=== PATIENT | female | born 1940 | race Caucasian/White ===

== ENCOUNTER → 2019-02-08 09:46 | Outpatient (CLI) | payer MEDICARE, OTHER, SELFPAY ==
--- NOTE | 2019-02-08 | DI.MRI.S_ITS ---
PROCEDURE: MR LUMBAR SPINE WO CON INDICATIONS: SCIATICA,RIGHT SIDE,RADICULAR PAIN RIGHT SIDE TECHNIQUE: Noncontrast sagittal T1 spin echo and T2 fast echo, sagittal STIR, axial T1 and T2 fast spin echo through the lumbar spine. In cases with scoliosis, additional coronal T2 fast spin echo may be performed. COMPARISON: None. FINDINGS: Image quality: Excellent. Alignment and Curvature: There is grade 1 anterolisthesis of L3 on L4 and L4-L5 Bone Marrow: Marrow is of normal overall signal. No acute vertebral body compression fractures. Spinal Cord: Conus medullaris terminates at the T12-L1 level. Visualized cord demonstrates normal signal and size. Paraspinous Soft Tissues: No paravertebral masses. L1-L2: Normal appearance. L2-L3: Bilateral facet arthrosis is seen. No significant disc bulge, canal stenosis or neuroforaminal narrowing. L3-L4: Broad-based disc bulge and bilateral facet arthrosis is seen with mild central canal stenosis and mild to moderate bilateral neuroforaminal narrowing. L4-L5: Decreased intervertebral disc space and degenerative endplate changes are seen. Broad-based disc bulge and bilateral facet arthrosis is seen with mild central canal stenosis and mild bilateral neural foramina narrowing. L5-S1: Diffuse disc bulge and bilateral facet arthrosis is seen with mild central canal stenosis and mild bilateral neuroforaminal narrowing. IMPRESSION: 1. Mild degenerative disc bulge and bilateral facet arthrosis at L3-4 through L5-S1 levels causing mild central canal stenosis and bilateral neural foramina narrowing. 2. Grade one anterolisthesis of L3 on L4 and L4 on L5. 3. No compression fracture or spondylolisthesis. No marrow edema. Dictated by: Sonny Trejo M.D. on 02/08/2019 at 11:52 Approved by: Sonny Trejo M.D. on 02/08/2019 at 11:54
== END ==
PROVIDERS: PCP Family Medicine Geriatric Medicine; Visit Provider Family Medicine Geriatric Medicine
DX: M51.16 Intervertebral disc disorders with radiculopathy, lumbar region (principal); M51.17 Intervertebral disc disorders with radiculopathy, lumbosacral region; M48.061 Spinal stenosis, lumbar region without neurogenic claudication; M48.07 Spinal stenosis, lumbosacral region; M47.26 Other spondylosis with radiculopathy, lumbar region; M47.27 Other spondylosis with radiculopathy, lumbosacral region; M43.16 Spondylolisthesis, lumbar region
CPT/HCPCS: 72148

== ENCOUNTER → 2019-02-27 12:27 | Outpatient (CLI) | payer MEDICARE, OTHER, SELFPAY ==
--- NOTE | 2019-02-27 12:31 | DI.RAD.S_ITS ---
PROCEDURE: XR HIP W PEL IF DONE RT 2V INDICATIONS: right low back and SI joint pain TECHNIQUE: 2 views of the hip were acquired. COMPARISON: None. FINDINGS: Bones: No fractures or dislocations. No suspicious bony lesions. The visualized pelvic ring appears intact. Moderate bilateral hip joint degenerative changes as evidenced by joint space narrowing and osteophyte formation. Moderate degenerative changes of the lower lumbosacral spine. Soft tissues: No suspicious soft tissue calcifications or masses. IMPRESSION: Moderate degenerative changes of the bilateral hip joints. Dictated by: Raza Ramires M.D. on 02/27/2019 at 14:12 Approved by: Raza Ramires M.D. on 02/27/2019 at 14:14
== END ==
PROVIDERS: PCP Family Medicine Geriatric Medicine; Visit Provider Registered Nurse
DX: M54.5 Low back pain (principal); M53.3 Sacrococcygeal disorders, not elsewhere classified; M47.817 Spondylosis without myelopathy or radiculopathy, lumbosacral region; M43.10 Spondylolisthesis, site unspecified; M47.816 Spondylosis without myelopathy or radiculopathy, lumbar region; M99.89 Other biomechanical lesions of abdomen and other regions; G89.29 Other chronic pain; K58.9 Irritable bowel syndrome, unspecified; K21.9 Gastro-esophageal reflux disease without esophagitis; Z86.73 Personal history of transient ischemic attack (TIA), and cerebral infarction without residual deficits
CPT/HCPCS: 73502; 99214

== ENCOUNTER 2019-03-30 09:37 | Outpatient (CLI) | payer MEDICARE, OTHER, SELFPAY ==
[2019-03-30] VITALS (8 sets, daily range): BP systolic 122–172; BP diastolic 53–84; PULSE 18–97; RESP 16–18; TEMP 36.2; O2SAT 96–100
--- NOTE | 2019-03-30 09:40 | DI.RAD.S_ITS ---
PROCEDURE: PAIN L/SI FACET INJ/BLK 1STL INDICATIONS: SPONDYLOSIS FINDINGS: Fluoroscopic spot filming was performed to verify placement of spinal needles at the L3-L4 and L4-L5 level(s), as labeled on the films. Appropriate location(s) of the needle tip(s) was confirmed by injection of iodinated contrast. IMPRESSION: Fluoroscopy for pain management. Dictated by: Sakshi Kirkpatrick M.D. on 03/30/2019 at 12:57 Approved by: Sakshi Kirkpatrick M.D. on 03/30/2019 at 12:57
[2019-03-30] MEDS: MIDAZOLAM 5 MG/5 ML VIAL IV (10:49)
[2019-03-30] MEDS: fentaNYL 100 MCG/2 ML INJ 50 MCG IV (10:50)
[2019-03-30] MEDS: IOPAMIDOL 15 ML VIAL 3 ML INJ (10:55)
[2019-03-30] MEDS: BUPIVACAINE 0.5% (PF) VIAL 2 ML INJ (10:56)
[2019-03-30] MEDS: BETAMETHASONE 30 MG/5 ML MDV 12 MG INJ (10:56)
--- NOTE | 2019-03-30 11:03 | P.PCN_ITS ---
Procedures Date/Time Date of procedure: 03/30/19 Time of procedure: 11:03 General Procedure description: PREOP DIAGNOSIS 1. FACET ARTHROPATHY, 2. AXIAL LBP, 3. MULTILEVEL DDD, POST OP DIAGNOSIS 1. FACET ARTHROPATHY, 2. AXIAL LBP, 3. MULTILEVEL DDD, PROCEDURES 1. FLUORSCOPICALLY GUIDED CONTRAST CONTROLLED FACET JOINT INJECTIONS RIGHT L3/4, L4/5 SURGEON: Clinton Moulton, INDICATIONS Tabitha Vanessa is referred by Dr. Baugh for treatment of Axial LBP FINDINGS Multilevel Facet Arthropathy with Clinically significant axial LBP DESCRIPTION OF PROCEDURE Fluoroscopically guided, contrast-controlled right L3/4, L4/5 facet joint injections. Following review of allergy and review of potential side effects and complications, including, but not necessarily limited to, infection, allergic reaction, local tissue breakdown, stroke, temporary or permanent nerve injury, paralysis, and possible , the patient indicated that the patient understood and agreed to proceed. An informed consent document was signed by the patient, witnessed by a nurse, and placed in the patient's chart. Additionally, other treatment options including medications, modalities, and physical therapy were reviewed with the patient. After review of previous anaesthesic history and IV conscious sedation the patient was deemed safe to proceed with todays procedure with IV conscious sedation as ASA class II designation. Safety time-out was performed to confirm patient ID, procedure to be performed and site of procedure. IV sedation was accomplished with a combination of 2mg of Versed and 50mcg of Fentanyl administered by the RN after DO order, titrated to patient comfort during the course of the procedure while the patient remained responsive to all verbal commands. In the prone position, following sterile prep and drape of the lumbar region, the posterior aspect of the right L3/4, L4/5 facet joints were identified fluoroscopically. The skin was anesthetized via a 25-gauge 1.5-inch needle with 1% lidocaine solution into the corresponding facet joints. At this point, a 22- gauge 3.5-inch spinal needle was atraumatically introduced and advanced under fluoroscopic guidance into the corresponding facet joints. Following negative aspiration, injections of approximately 0.2-cc of Isovue 200 confirmed interarticular placement without vascular uptake. Radiological data, including multiple fluoroscopic views of the lumbosacral spine, reveal a spinal needle at the right L3/4, L4/5 facet joints. Subsequent views show flow of contrast material both superiorly and inferiorly within the joint space without vascular or intrathecal uptake. At this point, a total of 0.5 cc including a mixture of 0.25 cc Marcaine and 0.25 cc betamethasone was injected without complication into each of the corresponding facet joints. The patient tolerated the procedure well without signs or symptoms of complications prior to transfer to the recovery area for further monitoring. The patient was then transferred to the recovery area where they were observed for an appropriate period of time after the injection. The patient reported a VAS score of 7 prior to the procedure and a post-procedure VAS of 0. Total Fluoroscopy Time: 12.7 seconds Total Conscious Sedation Time: 24min POST OP INSTRUCTIONS The patient was provided a Pain Log to continue to record their response to the target-specific procedure prior to follow-up visit with their referring physician. Additionally, specific post-injection care instructions and a contact number to our office were provided if concerns arise regarding possible complications associated with the procedure are suspected Complications: none
== END 2019-03-30 12:51 | disposition home or self-care (01) ==
LOC: RAD 09:40
PROVIDERS: PCP Family Medicine Geriatric Medicine; Visit Provider Physical Medicine & Rehabilitation
DX: M47.816 Spondylosis without myelopathy or radiculopathy, lumbar region (principal); M51.36 Other intervertebral disc degeneration, lumbar region; M54.5 Low back pain
CPT/HCPCS: 64493; 64494; 99152; J0702; J2250; J3010

== ENCOUNTER → 2021-01-01 07:38 | Outpatient (CLI) | payer MEDICARE, OTHER, SELFPAY ==
--- NOTE | 2021-01-01 07:40 | DI.RAD.S_ITS ---
PROCEDURE: XR LUMBAR SPINE MIN 4V INDICATIONS: BACK PAIN TECHNIQUE: 5 views of the lumbar spine were acquired, including bilateral oblique views. COMPARISON: None. FINDINGS: Bones: Very slight convex rightward curvature of the LS spine centered at L2, no prior trauma, no subluxation seen. Soft tissues: Overlying bowel gas pattern is normal. No suspicious soft tissue calcifications. Oblique images: No pars defects. IMPRESSION: Minimal convex rightward scoliosis, no prior trauma and no subluxation is present. Dictated by: Jordon Devi M.D. on 01/01/2021 at 9:03 Approved by: Jordon Devi M.D. on 01/01/2021 at 9:04
--- NOTE | 2021-01-01 07:40 | DI.RAD.S_ITS ---
PROCEDURE: XR THORACIC SPINE 3V INDICATIONS: RIB PAIN TECHNIQUE: 3 views of the thoracic spine were acquired. COMPARISON: None. FINDINGS: Bones: No fractures or dislocations. No suspicious bony lesions. Twelve pairs of ribs are noted, and appear intact where visualized. Soft tissues: No paravertebral stripe thickening. IMPRESSION: Surgical clips are present suggestive prior right-sided breast carcinoma surgery. An osteolytic or blastic lesion is not found but follow-up by nuclear medicine bone scan may be warranted. Dictated by: Jordon Devi M.D. on 01/01/2021 at 8:42 Approved by: Jordon Devi M.D. on 01/01/2021 at 8:45
== END ==
PROVIDERS: PCP Family Medicine; Referring Provider Physical Medicine & Rehabilitation; Visit Provider Physical Medicine & Rehabilitation
DX: M47.816 Spondylosis without myelopathy or radiculopathy, lumbar region (principal); M47.817 Spondylosis without myelopathy or radiculopathy, lumbosacral region; R07.81 Pleurodynia; M16.0 Bilateral primary osteoarthritis of hip; M53.3 Sacrococcygeal disorders, not elsewhere classified; G89.29 Other chronic pain; Q76.6 Other congenital malformations of ribs
CPT/HCPCS: 20611; 72072; 72110; 99214; J1040

== ENCOUNTER → 2021-06-09 12:52 | Outpatient (CLI) | payer MEDICARE, OTHER, SELFPAY ==
--- NOTE | 2021-06-09 | DI.RAD.S_ITS ---
PROCEDURE: FL BARIUM SWALLOW INDICATIONS: Dysphagia, pharyngoesophageal phase COMPARISON: None. FINDINGS: Function: A few small tertiary contraction waves noted in the distal esophagus compatible with mild esophageal dysmotility. Small hiatal hernia with slightly prominent Schatzki's ring is noted. There is mild gastroesophageal reflux which occurred without provocative maneuvers. There is normal transit of a calibrated barium tablet through the esophagus into the stomach. Morphology: Air-contrast images demonstrate normal mucosal morphology. Single contrast views show no esophageal strictures, extrinsic mass effects, or diverticula. Limited images of the stomach demonstrate normal appearance. IMPRESSION: 1. Mild gastroesophageal reflux. 2. Small hiatal hernia with slightly prominent Schatzki's ring. 13 millimeter barium tablet readily passed from esophagus into the stomach. 3. Mild distal esophageal dysmotility. Dictated by: Neha Brown MD, PhD on 06/09/2021 at 14:10 Approved by: Neha Brown MD, PhD on 06/09/2021 at 14:17
== END ==
PROVIDERS: PCP Family Medicine; Referring Provider Physician Assistant; Visit Provider Physician Assistant
DX: R13.14 Dysphagia, pharyngoesophageal phase (principal)
CPT/HCPCS: 74220; 74221

== ENCOUNTER → 2021-11-05 13:59 | Outpatient (CLI) | payer MEDICARE, OTHER, SELFPAY ==
--- NOTE | 2021-11-05 14:03 | DI.RAD.S_ITS ---
PROCEDURE: XR KNEE LT 3V INDICATIONS: Knee DJD TECHNIQUE: 3 views of the knee were acquired. COMPARISON: None. FINDINGS: Bones: No fractures or dislocations. No suspicious bony lesions. Soft tissues: No joint effusion. No suspicious soft tissue calcifications. IMPRESSION: Early degenerative arthritis. No evidence acute bony abnormality of the left knee. If clinical suspicion and/or symptoms persist, further assessment with repeat plain films, or advanced imaging (e.g., CT, MRI, or bone scan) may be helpful for further assessment. Dictated by: David Rendon M.D. on 11/05/2021 at 15:09 Approved by: David Rendon M.D. on 11/05/2021 at 16:59
--- NOTE | 2021-11-05 14:03 | DI.RAD.S_ITS ---
PROCEDURE: XR KNEE RT 3V INDICATIONS: Knee DJD TECHNIQUE: 3 views of the knee were acquired. COMPARISON: None. FINDINGS: Bones: No fractures or dislocations. No suspicious bony lesions. Early degenerative change. Soft tissues: Trace joint effusion. No suspicious soft tissue calcifications. IMPRESSION: Early degenerative change of the right knee. No evidence acute bony abnormality of the right knee. If clinical suspicion and/or symptoms persist, further assessment with repeat plain films, or advanced imaging (e.g., CT, MRI, or bone scan) may be helpful for further assessment. Dictated by: David Rendon M.D. on 11/05/2021 at 15:08 Approved by: David Rendon M.D. on 11/05/2021 at 15:09
== END ==
PROVIDERS: Referring Provider Physical Medicine & Rehabilitation; Visit Provider Physical Medicine & Rehabilitation
DX: M17.12 Unilateral primary osteoarthritis, left knee (principal); M16.11 Unilateral primary osteoarthritis, right hip; M41.9 Scoliosis, unspecified
CPT/HCPCS: 20611; 73562; 99215; J1040

== ENCOUNTER → 2023-01-11 09:54 | Outpatient (CLI) | payer MEDICARE, OTHER, SELFPAY ==
--- NOTE | 2023-01-11 09:57 | DI.RAD.S_ITS ---
PROCEDURE: XR LUMBAR SPINE MIN 4V INDICATIONS: LEFT HIP PAIN TECHNIQUE: 5 views of the lumbar spine were acquired, including bilateral oblique views. COMPARISON: [facility], CR, XR LUMBAR SPINE MIN 4V, 01/01/2021, 7:41. FINDINGS: Bones: There are 5 lumbar type vertebral bodies. Partially seen right hip arthroplasty. Degenerative changes also seen in the left hip. 3-4 mm of anterolisthesis of L3 on L4 and 4-5 mm seen at L4-L5. [id number] degenerative changes, with facet arthropathy and disc space height loss. No definite pars defect seen on oblique views, evaluation limited by bowel gas. Soft tissues: Vascular calcifications. IMPRESSION: Partially visualized left hip with moderate degenerative changes. [id number] degenerative changes of the lumbar spine with multilevel spondylolisthesis. If there is high concern for further derangement, consider MRI evaluation. Dictated by: Aron Huitron M.D. on 01/11/2023 at 11:38 Approved by: Aron Huitron M.D. on 01/11/2023 at 11:41
== END ==
PROVIDERS: PCP Family Medicine; Referring Provider Physical Medicine & Rehabilitation; Visit Provider Physical Medicine & Rehabilitation
DX: M47.816 Spondylosis without myelopathy or radiculopathy, lumbar region (principal); M47.817 Spondylosis without myelopathy or radiculopathy, lumbosacral region; M43.16 Spondylolisthesis, lumbar region; M48.00 Spinal stenosis, site unspecified; M16.12 Unilateral primary osteoarthritis, left hip; Q76.6 Other congenital malformations of ribs; M43.10 Spondylolisthesis, site unspecified; Z96.641 Presence of right artificial hip joint; Z86.73 Personal history of transient ischemic attack (TIA), and cerebral infarction without residual deficits
CPT/HCPCS: 72110; 99214

== ENCOUNTER → 2023-01-19 16:11 | Outpatient (CLI) | payer MEDICARE, OTHER, SELFPAY ==
--- NOTE | 2023-01-19 16:14 | DI.MRI.S_ITS ---
PROCEDURE: MR LUMBAR SPINE WO CON INDICATIONS: Lumbar stenosis with neurogenic claudication TECHNIQUE: Noncontrast sagittal T1 spin echo and T2 fast echo, sagittal STIR, and T2 fast spin echo through the lumbar spine. In cases with scoliosis, additional coronal T2 fast spin echo may be performed. COMPARISON: [facility], MR, MR LUMBAR SPINE WO CON, 02/08/2019, 9:56. FINDINGS: Image quality: Excellent. Alignment and Curvature: There is normal bony alignment. Bone Marrow: Marrow is of normal overall signal. No acute vertebral body compression fractures. Spinal Cord: Conus medullaris terminates at the L1 level. Visualized cord demonstrates normal signal and size. Paraspinous Soft Tissues: No paravertebral masses. T12-L1: No significant disc bulge. The foramina and central canal are patent. L1-L2: No significant disc bulge. The foramina and central canal are patent. L2-L3: Diffuse disc bulge asymmetric to the right. The foramina and central canal are patent. L3-L4: Diffuse disc bulge and grade 1 anterolisthesis. Mild bilateral foraminal stenosis. The central canal is patent. L4-L5: Diffuse disc bulge and grade 1 anterolisthesis. Mild bilateral foraminal stenosis. The central canal is patent. L5-S1: No significant disc bulge. The foramina and central canal are patent. IMPRESSION: 1. Multilevel mild disc disease, unchanged compared to CT on 02/08/2019. 2. No abnormal cord signal. 3. No central canal stenosis. Dictated by: Rubens Colon M.D. on 01/19/2023 at 17:20 Approved by: Rubens Colon M.D. on 01/19/2023 at 17:25
== END ==
PROVIDERS: PCP Family Medicine; Referring Provider Physical Medicine & Rehabilitation; Visit Provider Physical Medicine & Rehabilitation
DX: M51.36 Other intervertebral disc degeneration, lumbar region (principal); M47.816 Spondylosis without myelopathy or radiculopathy, lumbar region; M48.062 Spinal stenosis, lumbar region with neurogenic claudication
CPT/HCPCS: 72148

== ENCOUNTER 2023-02-02 14:17 | Outpatient (CLI) | payer MEDICARE, OTHER, SELFPAY ==
[2023-02-02] VITALS (8 sets, daily range): BP systolic 122–152; BP diastolic 57–75; PULSE 71–85; RESP 10–17; TEMP 36.2; O2SAT 97–100
--- NOTE | 2023-02-02 14:22 | DI.RAD.S_ITS ---
PROCEDURE: PAIN L INTERLAMINAR/CAUDAL INJ INDICATIONS: SPONDYLOSIS COMPARISON: [facility], MR, MR LUMBAR SPINE WO CON, 01/19/2023, 16:20. FINDINGS: Fluoroscopic spot filming was performed to verify placement of a spinal needle at the L4-L5 level, as labeled on the films. Appropriate location of the needle tip was confirmed by injection of iodinated contrast. IMPRESSION: Intraprocedural examination within normal limits. Dictated by: Salty Strange M.D. on 02/02/2023 at 16:40 Approved by: Salty Strange M.D. on 02/02/2023 at 16:40
[2023-02-02] MEDS: MIDAZOLAM 2 MG/2 ML VIAL IV (15:10)
[2023-02-02] MEDS: BETAMETHASONE 30 MG/5 ML MDV 6 MG INJ (15:14)
[2023-02-02] MEDS: DEXAMETHASONE 10 MG/ML VIAL 20 MG INJ (15:14)
[2023-02-02] MEDS: IOPAMIDOL 15 ML VIAL 3 ML INJ (15:14)
[2023-02-02] MEDS: BUPIVACAINE 0.25% (PF) VIAL 2 ML INJ (15:15)
--- NOTE | 2023-02-02 15:24 | P.PCN_ITS ---
Date/Time/Diagnoses Date of procedure: 02/02/23 Time of procedure: 15:24 Pre-procedure diagnosis: 1. HNP WITH RADICULAR FEATURES, 2. MULTILEVEL CENTRAL STENOSIS, Post-procedure diagnosis: same Procedure Notes Procedure: 1. FLUOROSCOPICALLY GUIDED CONTRAST CONTROLLED INTERLAMINAR EPIDURAL STEROID INJECTION -L4/5 Indications: Jahaira Vanessa is referred by Dr. Kelley for treatment of Bilateral Foraminal Stenosis R>L LE symptoms. Physician: Clinton Moulton Total Fluoroscopy time (seconds): 7 Total sedation minutes: 10 Complications: none Procedure in detail & Post-procedure care: FINDINGS Multilevel Central Spinal Stenosis with Nerve Root Compression DESCRIPTION OF PROCEDURE Fluoroscopically guided, contrast-controlled L4/5 translaminar epidural steroid injection. Following review of allergy and review of potential side effects and complications, including, but not necessarily limited to, infection, allergic reaction, local tissue breakdown, temporary as well as permanent nerve injury, paralysis, stroke and possible , the patient indicated that the patient understood and agreed to proceed. An informed consent document was signed by the patient, witnessed by a nurse, and placed in the patient's chart. Additionally, other treatment options including modalities, medications, and physical therapy were reviewed with the patient. After review of previous anaesthesic history and IV conscious sedation the patient was deemed safe to proceed with today?s procedure with IV conscious sedation as ASA class II designation. Safety time-out was performed to confirm patient ID, procedure to be performed and site of procedure. IV sedation was accomplished with a combination of 2mg of Versed was administered by the RN after DO order, titrated to patient comfort during the course of the procedure while the patient remained responsive to all verbal commands In the prone position, following sterile prep and drape of the lumbar region, the L4/5 translaminar space was identified fluoroscopically. The skin was anesthetized via a 25-gauge, 1.5inch needle with 1% lidocaine solution. At this point, a 22-gauge short bevel spinal needle was atraumatically introduced and advanced under fluoroscopic guidance into the region of the L4/5 translaminar space. Depth was confirmed on lateral view. Radiological data, including multiple fluoroscopic views of the lumbar spine, reveal a spinal needle at the L4/5 translaminar space. Lateral views then show placement of the needle in the epidural space. Subsequent views show contrast material flowing superiorly and inferiorly in the epidural space. No vascular or intrathecal uptake is observed. At this point, using loss of resistance technique with saline and air, the epidural space was entered. This was confirmed following negative aspiration with injection of approximately 1.5cc of Isovue 200, showing excellent epidural flow without vascular or intrathecal uptake. At this point, 1cc of 1% lidocaine solution combined with 3cc or 20mg of dexamethasone and 6mg betamethasone was injected without incident. The patient tolerated the procedure well without signs or symptoms of complications prior to transfer to the recovery area continued monitoring without incident. The patient was then transferred to the recovery area where they were observed for an appropriate period of time after the injection. The patient reported a VAS score of 6 prior to the procedure and a post- procedure VAS of 0. POST OP INSTRUCTIONS The patient was provided a Pain Log to continue to record their response to the target-specific procedure prior to follow-up visit with their referring physician. Additionally, specific post-injection care instructions and a contact number to our office were provided if concerns arise regarding possible complications associated with the procedure are suspected.
== END 2023-02-02 15:44 | disposition home or self-care (01) ==
LOC: RAD 14:18
PROVIDERS: PCP Family Medicine; Referring Provider Physical Medicine & Rehabilitation; Visit Provider Physical Medicine & Rehabilitation
DX: M51.16 Intervertebral disc disorders with radiculopathy, lumbar region (principal); M48.061 Spinal stenosis, lumbar region without neurogenic claudication
CPT/HCPCS: 62323; 99152; J0702; J1100; J2250; J3490

== ENCOUNTER → 2024-12-20 14:10 | Outpatient (CLI) | payer MEDICARE, OTHER, SELFPAY ==
--- NOTE | 2024-12-20 14:12 | DI.RAD.S_ITS ---
PROCEDURE: XR LUMBAR SPINE MIN 4V INDICATIONS: BACK PAIN TECHNIQUE: 5 views of the lumbar spine were acquired, including bilateral oblique views. COMPARISON: [facility], CR, XR LUMBAR SPINE MIN 4V, 01/11/2023, 9:55. FINDINGS: Bones: 5 nonrib-bearing vertebrae are present. There is trace anterolisthesis of L3 on L4, L4 on L5. Multilevel degenerative disc and foraminal narrowing most severe at L5-S1. Right hip arthroplasty post, partially visualized. No vertebral body compression fractures. No suspicious bony lesions. Soft tissues: Overlying bowel gas pattern is normal. No suspicious soft tissue calcifications. Oblique images: No pars defects. IMPRESSION: Degenerative changes most severe at L5-S1, minimally progressive. Dictated by: Vilma Holt M.D. on 12/20/2024 at 16:14 Approved by: Vilma Holt M.D. on 12/20/2024 at 16:15
--- NOTE | 2024-12-20 14:12 | DI.RAD.S_ITS ---
PROCEDURE: XR SHOULDER LT MIN 2V INDICATIONS: LEFT SHOULDER PAIN TECHNIQUE: 3 views of the shoulder were acquired. COMPARISON: None. FINDINGS: Bones: No fractures or dislocations. No suspicious bony lesions. Visualized ribs appear intact. Moderate to severe glenohumeral and acromioclavicular degenerative change. No erosions. Soft tissues: No suspicious soft tissue calcifications. IMPRESSION: Acromioclavicular and glenohumeral arthritic change. Dictated by: Vilma Holt M.D. on 12/20/2024 at 16:15 Approved by: Vilma Holt M.D. on 12/20/2024 at 16:15
== END ==
PROVIDERS: PCP Family Medicine; Referring Provider Physical Medicine & Rehabilitation; Visit Provider Physical Medicine & Rehabilitation
DX: M48.062 Spinal stenosis, lumbar region with neurogenic claudication (principal); M47.816 Spondylosis without myelopathy or radiculopathy, lumbar region; M25.512 Pain in left shoulder; M89.8X0 Other specified disorders of bone, multiple sites; M53.3 Sacrococcygeal disorders, not elsewhere classified; G89.29 Other chronic pain; M47.817 Spondylosis without myelopathy or radiculopathy, lumbosacral region; M75.42 Impingement syndrome of left shoulder
CPT/HCPCS: 20611; 72110; 73030; 99214; J0702